=== PATIENT | female | born 1980 | race American Indian/Alaskan Native ===

== ENCOUNTER 2019-03-27 19:21 | Emergency (ER) | payer SELFPAY ==
[2019-03-27] MEDS ORDERED: IBUPROFEN 600 MG TAB PO ONE ×2 (22:03→22:05)
--- NOTE | 2019-03-27 22:03 | Event Note ---
ED Screening Note ED Screening Note: abscess to the labia that 2 days states she does shave with a razor no drainage no fever pmhx HTN no allergies to meds LNMP 03/21/19 This initial assessment/diagnostic orders/clinical plan/treatment(s) is/are subject to change based on patients health status, clinical progression and re- assessment by fellow clinical providers in the ED. Further treatment and workup at subsequent clinical providers discretion. Patient/guardian urged not to elope from the ED as their condition may be serious if not clinically assessed and managed. Initial orders include: ACC eval ibuprofen
[2019-03-28] MEDS ORDERED: ACETAMINOPHEN 325 MG TAB PO ONE (01:11)
[2019-03-28] MEDS ORDERED: SULFAMETHOXAZOLE/TRIMETHOPRIM 800/160MG DS TAB PO ONE (03:55)
[2019-03-28] MEDS ORDERED: LIDOCAINE-MPF (1%) 10 MG/1 ML VIAL 5 ML INFILTRATI ONE (03:55)
[2019-03-28] MEDS ORDERED: CLINDAMYCIN 300 MG CAP PO ONE (03:55)
[2019-03-28] MEDS ORDERED: ONDANSETRON 4 MG ODT TAB PO ONE (03:55)
--- NOTE | 2019-03-28 06:37 | Emergency Department Report ---
ED General Adult HPI - General Chief complaint: Urogenital-Female Stated complaint: BOIL ON LEFT SIDE OF VAGINA LIP Time Seen by Provider: 03/27/19 22:02 Source: patient Mode of arrival: Ambulatory Limitations: No Limitations - History of Present Illness Initial comments: Patient is a 38 year-old female with no past medical history who presents to the ED with complaint of acute onset persistent severe painful swollen erythematous fluctuant maculopapular rash on the left inguinal area for the last 2 days. Patient states that she recently shaved her pubic area and suspects that the rash may have resulted from this shaving. Patient denies fever, chills, nausea, vomiting, dizziness, numbness and tingling or weakness of left leg, chest pain or shortness of breath and abdominal pain. MD Complaint: left inguinal painful swollen rash -: Sudden, days(s) (2) Location: genitals (left inguinal area) Radiation: non-radiation Severity scale (0 -10): 10 Quality: aching, sharp Consistency: constant Improves with: none Worsens with: movement Associated Symptoms: denies other symptoms, rash (swollen, painful erythematous maculopapular fluctuant rash on left inguinal area). denies: confusion, chest pain, cough, diaphoresis, fever/chills, headaches, loss of appetite, malaise, nausea/vomiting, shortness of breath, syncope, other Treatments Prior to Arrival: none - Related Data Previous Rx's Medication Instructions Recorded Last Taken Type Acetaminophen/Codeine [Tylenol 1 tab PO Q6H PRN #12 tab 03/28/19 Unknown Rx /Codeine # 3 tab] Clindamycin [Clindamycin CAP] 300 mg PO Q8HR #60 capsule 03/28/19 Unknown Rx Fluconazole [Diflucan TAB] 150 mg PO ONCE #1 tablet 03/28/19 Unknown Rx Ibuprofen [Motrin] 800 mg PO Q8HR PRN #24 tablet 03/28/19 Unknown Rx Ondansetron [Zofran Odt] 4 mg PO Q6HR PRN #15 tab.rapdis 03/28/19 Unknown Rx Sulfamethoxazole/Trimethoprim 1 each PO Q12H #20 tablet 03/28/19 Unknown Rx [Bactrim DS TAB] Allergies Allergy/AdvReac Type Severity Reaction Status Date / Time No Known Allergies Allergy Verified 03/27/19 19:27 ED Review of Systems ROS: Stated complaint: BOIL ON LEFT SIDE OF VAGINA LIP Other details as noted in HPI Constitutional: denies: chills, fever Eyes: denies: eye pain, eye discharge, vision change ENT: denies: ear pain, throat pain Respiratory: denies: cough, shortness of breath, wheezing Cardiovascular: denies: chest pain, palpitations Endocrine: no symptoms reported Gastrointestinal: denies: abdominal pain, nausea, diarrhea Genitourinary: denies: urgency, dysuria, discharge Musculoskeletal: denies: back pain, joint swelling, arthralgia Skin: rash, change in color, other (swollen, erythematous, painful maculopapular fluctuant rash on the left inguinal area). denies: lesions Neurological: denies: headache, weakness, paresthesias Psychiatric: denies: anxiety, depression Hematological/Lymphatic: denies: easy bleeding, easy bruising ED Past Medical Hx - Past Medical History Previous Medical History?: Yes Hx Hypertension: Yes - Surgical History Past Surgical History?: No - Social History Smoking Status: Never Smoker Substance Use Type: None - Medications Home Medications: Home Medications Medication Instructions Recorded Confirmed Last Taken Type Acetaminophen/Codeine [Tylenol 1 tab PO Q6H PRN #12 tab 03/28/19 Unknown Rx /Codeine # 3 tab] Clindamycin [Clindamycin CAP] 300 mg PO Q8HR #60 capsule 03/28/19 Unknown Rx Fluconazole [Diflucan TAB] 150 mg PO ONCE #1 tablet 03/28/19 Unknown Rx Ibuprofen [Motrin] 800 mg PO Q8HR PRN #24 tablet 03/28/19 Unknown Rx Ondansetron [Zofran Odt] 4 mg PO Q6HR PRN #15 tab.rapdis 03/28/19 Unknown Rx Sulfamethoxazole/Trimethoprim 1 each PO Q12H #20 tablet 03/28/19 Unknown Rx [Bactrim DS TAB] ED Physical Exam - General Limitations: No Limitations General appearance: alert, in no apparent distress - Head Head exam: Present: atraumatic, normocephalic, normal inspection - Eye Eye exam: Present: normal appearance, PERRL, EOMI Pupils: Present: normal accommodation - ENT ENT exam: Present: normal exam, normal orophraynx, mucous membranes moist, TM's normal bilaterally, normal external ear exam - Neck Neck exam: Present: normal inspection, full ROM. Absent: tenderness - Respiratory Respiratory exam: Present: normal lung sounds bilaterally. Absent: respiratory distress, wheezes, rales, stridor, chest wall tenderness, decreased breath sounds - Cardiovascular Cardiovascular Exam: Present: normal rhythm, tachycardia, normal heart sounds. Absent: systolic murmur, diastolic murmur, rubs, gallop - GI/Abdominal GI/Abdominal exam: Present: soft, normal bowel sounds. Absent: tenderness, guarding, hyperactive bowel sounds, hypoactive bowel sounds - Extremities Exam Extremities exam: Present: normal inspection, full ROM, normal capillary refill. Absent: pedal edema - Back Exam Back exam: Present: normal inspection, full ROM. Absent: tenderness, muscle spasm, paraspinal tenderness - Neurological Exam Neurological exam: Present: alert, oriented X3, CN II-XII intact, normal gait, reflexes normal - Psychiatric Psychiatric exam: Present: normal affect, normal mood - Skin Skin exam: Present: warm, dry, intact, normal color, rash (swollen, erythematous, maculopapular fluctuant severely tender rash in the left inguinal area), erythema ED Course Vital Signs 03/27/19 03/27/19 03/27/19 20:02 22:02 23:15 Temperature 98.9 F 98.9 F Pulse Rate 103 H 103 H Respiratory 18 18 18 Rate Blood Pressure 140/96 140/96 O2 Sat by Pulse 100 100 Oximetry 03/28/19 01:46 Temperature 97.9 F Pulse Rate 97 H Respiratory 18 Rate Blood Pressure 146/96 O2 Sat by Pulse 98 Oximetry - I & D Left Lateral Groin Type of Procedure: Simple Site: Left inguinal area Blade Size: 11 I & D Procedure: betadine prep, sterile drapes applied, sterile dressing applied Progress: The left inguinal area rash was cleaned thoroughly and local anesthetic applied lidocaine 1%. The wound was then drained appropriately per protocol and the patient tolerated the procedure well. The wound was debrided until collections broken and iodoform gauze used to pack the wound. The wound was then dressed appropriately with 4 x 4 gauzes and Tegaderm. Patient tolerated the procedure well and was discharged home on pain medications and oral antibiotics and advised to follow-up with her primary care physician in 5-7 days for reevaluation or return to the ED immediately if symptoms get worse. Patient was otherwise advised to return to the ED in 2 days for wound recheck and packing removal. ED Medical Decision Making - Medical Decision Making This is a 38-year-old female who presented to the ED with painful swollen erythematous maculopapular rash on her left inguinal area. In the ED, patient is alert and oriented 3 and is not in distress. But tachycardic and afebrile in triage. Patient was treated for pain, also given oral antibiotics in the ED. The left inguinal rash was cleaned and drained per protocol. Iodoform gauze was used as a packing material and the wound dressed appropriately. Patient was discharged home on medications including antibiotics and pain medicines and was advised to follow-up with her primary care physician in 5-7 days for reevaluation or return to the ED immediately if symptoms get worse. Patient was otherwise advised to return to the ED in 2 days for wound recheck and packing removal. - Differential Diagnosis left inguinal cellulitis; Acute folliculitis; Abscess Critical care attestation.: If time is entered above; I have spent that time in minutes in the direct care of this critically ill patient, excluding procedure time. ED Disposition Clinical Impression: Cutaneous abscess of groin, Cellulitis of left groin, Acute folliculitis Disposition: DC-01 TO HOME OR SELFCARE Is pt being admited?: No Does the pt Need Aspirin: No Condition: Stable Instructions: Folliculitis (ED), Cellulitis (ED), Abscess (ED) Additional Instructions: Take medications with food, drink plenty of fluids and follow-up with your primary care physician 5-7 days for reevaluation. Return to the ED immediately if symptoms get worse. Otherwise return to the ED in 2 days for wound recheck and packing removal. Prescriptions: Sulfamethoxazole/Trimethoprim [Bactrim DS TAB] 1 each PO Q12H #20 tablet Clindamycin [Clindamycin CAP] 300 mg PO Q8HR #60 capsule Fluconazole [Diflucan TAB] 150 mg PO ONCE #1 tablet Ibuprofen [Motrin] 800 mg PO Q8HR PRN #24 tablet PRN Reason: Pain , Severe (7-10) Acetaminophen/Codeine [Tylenol /Codeine # 3 tab] 1 tab PO Q6H PRN #12 tab PRN Reason: Pain , Severe (7-10) Ondansetron [Zofran Odt] 4 mg PO Q6HR PRN #15 tab.rapdis PRN Reason: Nausea Referrals: [facility] [Outside] - 3-5 Days Forms: Work/School Release Form(ED) Time of Disposition: 06:42 Print Language: LAO
[2019-03-28 07:05] VITALS: BP 122/65
== END 2019-03-28 07:06 | disposition home or self-care (01) ==
LOC: ED 19:21
DX: L02.214 Cutaneous abscess of groin (principal); L03.314 Cellulitis of groin; L73.8 Other specified follicular disorders; I10 Essential (primary) hypertension; Z79.899 Other long term (current) drug therapy
CPT/HCPCS: Q0162

== ENCOUNTER 2019-03-31 06:10 | Emergency (ER) | payer SELFPAY ==
[2019-03-31 06:17] VITALS: BP 144/100
--- NOTE | 2019-03-31 08:10 | Emergency Department Report ---
- General Chief Complaint: Skin/Abscess/Foreign Body Stated Complaint: FOLLOW UP VISIT Time Seen by Provider: 03/31/19 07:28 Source: patient Mode of arrival: Ambulatory Limitations: No Limitations - History of Present Illness -: days(s) (2) Location: genitals 1 - Incised wound region right here no discharge. Mild induration induration. Some tenderness with palpation. No cellulitis. Packing was removed in its entirety Place: home Patient Tetanus UTD: Yes - Related Data Previous Rx's Medication Instructions Recorded Last Taken Type Acetaminophen/Codeine [Tylenol 1 tab PO Q6H PRN #12 tab 03/28/19 Unknown Rx /Codeine # 3 tab] Clindamycin [Clindamycin CAP] 300 mg PO Q8HR #60 capsule 03/28/19 Unknown Rx Fluconazole [Diflucan TAB] 150 mg PO ONCE #1 tablet 03/28/19 Unknown Rx Ibuprofen [Motrin] 800 mg PO Q8HR PRN #24 tablet 03/28/19 Unknown Rx Ondansetron [Zofran Odt] 4 mg PO Q6HR PRN #15 tab.rapdis 03/28/19 Unknown Rx Sulfamethoxazole/Trimethoprim 1 each PO Q12H #20 tablet 03/28/19 Unknown Rx [Bactrim DS TAB] Chlorhexidine Gluconate [Hibiclens] 10 ml TP BID #240 liquid 03/31/19 Unknown Rx Allergies Allergy/AdvReac Type Severity Reaction Status Date / Time No Known Allergies Allergy Verified 03/27/19 19:27 ED Review of Systems ROS: Stated complaint: FOLLOW UP VISIT Other details as noted in HPI Comment: All other systems reviewed and negative ED Past Medical Hx - Past Medical History Previous Medical History?: Yes Hx Hypertension: Yes - Surgical History Past Surgical History?: No - Social History Smoking Status: Current Every Day Smoker Substance Use Type: None - Medications Home Medications: Home Medications Medication Instructions Recorded Confirmed Last Taken Type Acetaminophen/Codeine [Tylenol 1 tab PO Q6H PRN #12 tab 03/28/19 Unknown Rx /Codeine # 3 tab] Clindamycin [Clindamycin CAP] 300 mg PO Q8HR #60 capsule 03/28/19 Unknown Rx Fluconazole [Diflucan TAB] 150 mg PO ONCE #1 tablet 03/28/19 Unknown Rx Ibuprofen [Motrin] 800 mg PO Q8HR PRN #24 tablet 03/28/19 Unknown Rx Ondansetron [Zofran Odt] 4 mg PO Q6HR PRN #15 tab.rapdis 03/28/19 Unknown Rx Sulfamethoxazole/Trimethoprim 1 each PO Q12H #20 tablet 03/28/19 Unknown Rx [Bactrim DS TAB] Chlorhexidine Gluconate [Hibiclens] 10 ml TP BID #240 liquid 03/31/19 Unknown Rx ED Physical Exam - General Limitations: No Limitations General appearance: alert, in no apparent distress - Head Head exam: Present: atraumatic, normocephalic - Eye Eye exam: Present: normal appearance, PERRL, EOMI Pupils: Present: normal accommodation - ENT ENT exam: Present: normal exam, normal orophraynx, mucous membranes moist - Neck Neck exam: Present: normal inspection - Respiratory Respiratory exam: Present: normal lung sounds bilaterally. Absent: respiratory distress - Cardiovascular Cardiovascular Exam: Present: regular rate, normal rhythm. Absent: systolic murmur, diastolic murmur, rubs, gallop - GI/Abdominal GI/Abdominal exam: Present: soft, normal bowel sounds - Extremities Exam Extremities exam: Present: normal inspection - Back Exam Back exam: Present: normal inspection - Neurological Exam Neurological exam: Present: alert, oriented X3 - Psychiatric Psychiatric exam: Present: normal affect, normal mood - Skin Skin exam: Present: warm, dry, intact, normal color. Absent: rash ED Course Vital Signs 03/31/19 06:14 Temperature 98.5 F Pulse Rate 87 Respiratory 14 Rate Blood Pressure 144/100 O2 Sat by Pulse 99 Oximetry Critical care attestation.: If time is entered above; I have spent that time in minutes in the direct care of this critically ill patient, excluding procedure time. ED Disposition Clinical Impression: Wound check, abscess Disposition: DC-01 TO HOME OR SELFCARE Is pt being admited?: No Does the pt Need Aspirin: No Condition: Stable Instructions: Abscess Incision and Drainage (ED), Acute Wound Care (ED), Abscess (ED) Prescriptions: Chlorhexidine Gluconate [Hibiclens] 10 ml TP BID #240 liquid Referrals: [facility] [Provider Group] - 3-5 Days PRIMARY CARE, [Primary Care Provider] - 3-5 Days
== END 2019-03-31 08:05 | disposition home or self-care (01) ==
LOC: ED 06:10
DX: I10 Essential (primary) hypertension (principal); F17.200 Nicotine dependence, unspecified, uncomplicated; Z48.00 Encounter for change or removal of nonsurgical wound dressing; Z79.1 Long term (current) use of non-steroidal anti-inflammatories (NSAID); Z79.899 Other long term (current) drug therapy

== ENCOUNTER 2020-01-07 07:04 | Emergency (ER) | payer SELFPAY ==
--- NOTE | 2020-01-07 08:35 | Emergency Department Report ---
<TD BLOCK M - Last Filed: 01/08/20 12:35> ED General Adult HPI - General Chief complaint: Psych Stated complaint: SUICIDAL Time Seen by Provider: 01/07/20 08:27 - Related Data Home Medications Medication Instructions Recorded Confirmed Last Taken [place] 300 mg PO Q8H 01/07/20 01/07/20 Unknown risperiDONE [RisperDAL] 0.5 mg PO DAILY 01/07/20 01/07/20 Unknown Previous Rx's Medication Instructions Recorded Last Taken Type Acetaminophen/Codeine [Tylenol 1 tab PO Q6H PRN #12 tab 03/28/19 Unknown Rx /Codeine # 3 tab] Clindamycin [Clindamycin CAP] 300 mg PO Q8HR #60 capsule 03/28/19 Unknown Rx Fluconazole (Nf) [Diflucan TAB] 150 mg PO ONCE #1 tablet 03/28/19 Unknown Rx Ibuprofen [Motrin] 800 mg PO Q8HR PRN #24 tablet 03/28/19 Unknown Rx Ondansetron [Zofran Odt] 4 mg PO Q6HR PRN #15 tab.rapdis 03/28/19 Unknown Rx Sulfamethoxazole/Trimethoprim 1 each PO Q12H #20 tablet 03/28/19 Unknown Rx [Bactrim DS TAB] Chlorhexidine Gluconate [Hibiclens] 10 ml TP BID #240 liquid 03/31/19 Unknown Rx [place] 300 mg PO Q8H #90 tablet 01/08/20 Unknown Rx cefUROXime [Ceftin] 250 mg PO Q12H #14 tablet 01/08/20 Unknown Rx risperiDONE [RisperDAL] 0.25 mg PO BID #60 tab 01/08/20 Unknown Rx Allergies Allergy/AdvReac Type Severity Reaction Status Date / Time No Known Allergies Allergy Verified 03/27/19 19:27 ED Past Medical Hx - Medications Home Medications: Home Medications Medication Instructions Recorded Confirmed Last Taken Type Acetaminophen/Codeine [Tylenol 1 tab PO Q6H PRN #12 tab 03/28/19 01/07/20 Unknown Rx /Codeine # 3 tab] Clindamycin [Clindamycin CAP] 300 mg PO Q8HR #60 capsule 03/28/19 01/07/20 Unknown Rx Fluconazole (Nf) [Diflucan TAB] 150 mg PO ONCE #1 tablet 03/28/19 01/07/20 Unknown Rx Ibuprofen [Motrin] 800 mg PO Q8HR PRN #24 tablet 03/28/19 01/07/20 Unknown Rx Ondansetron [Zofran Odt] 4 mg PO Q6HR PRN #15 tab.rapdis 03/28/19 01/07/20 Unknown Rx Sulfamethoxazole/Trimethoprim 1 each PO Q12H #20 tablet 03/28/19 01/07/20 Unknown Rx [Bactrim DS TAB] Chlorhexidine Gluconate [Hibiclens] 10 ml TP BID #240 liquid 03/31/19 01/07/20 Unknown Rx [place] 300 mg PO Q8H 01/07/20 01/07/20 Unknown History risperiDONE [RisperDAL] 0.5 mg PO DAILY 01/07/20 01/07/20 Unknown History [place] 300 mg PO Q8H #90 tablet 01/08/20 Unknown Rx cefUROXime [Ceftin] 250 mg PO Q12H #14 tablet 01/08/20 Unknown Rx risperiDONE [RisperDAL] 0.25 mg PO BID #60 tab 01/08/20 Unknown Rx ED Medical Decision Making - Lab Data Result diagrams: 01/07/20 08:11 01/07/20 08:11 - Medical Decision Making Urinalysis possibly consistent with UTI. I will send culture and prescribe Ceftin. ED Disposition Clinical Impression: Methamphetamine abuse, Drug-induced psychotic disorder, Medical clearance for psychiatric admission Disposition: [id number]/TX-[id number] PSY HOSP/PSY UNIT Is pt being admited?: No Does the pt Need Aspirin: No Condition: Good Instructions: Amphetamines Use Disorder, Urinary Tract Infection, Adult Prescriptions: cefUROXime [Ceftin] 250 mg PO Q12H #14 tablet [place] 300 mg PO Q8H #90 tablet risperiDONE [RisperDAL] 0.25 mg PO BID #60 tab Referrals: PRIMARY CARE,MD [Primary Care Provider] - 3-5 Days Time of Disposition: 12:36 <GRETCHEN ALBERTO - Last Filed: 01/08/20 17:06> ED General Adult HPI - General PUI?: Yes Source: patient, EMS ( EMS documentation not available at time of chart dictation ), RN notes reviewed, old records reviewed Mode of arrival: Ambulatory Limitations: No Limitations - History of Present Illness Initial comments: The patient was evaluated in the emergency department for symptoms described in the history of present illness. He/she was evaluated in the context of the global COVID-19 pandemic, which necessitated consideration that the patient might be at risk for infection with the virus that causes COVID-19. Institutional protocols and algorithms that pertain to the evaluation of patients at risk for COVID-19 are in a state of rapid change based on in formation released by regulatory bodies including the CDC and federal and state organizations. These policies and algorithms were followed during the patient's care in the emergency department. Please note that these policies, procedures and recommendations changed on a rapid basis. During the entire history and physical examination, I had on complete personal protective equipment. This patient is a 39-year-old female, with a history of psychiatric disease, who presents to the ER via EMS, for psychiatric reasons. Apparently, the patient reports suicidality, wants to set herself on fire, and reports a plan to run into traffic. The patient denies physical pain at this time. She denies headache, neck pain, chest pain, abdominal pain, shortness of breath, dysuria, irritative/obstructive urinary symptoms. To me, she denies fever, cough, loss of taste, loss of smell. She is intermittently compliant with her psychiatric medications. She believes her trigger for this is a recent methamphetamine binge. She typically snorts methamphetamines. She denies other coingestions. She told nursing staff that she has COVID-19. To me, she states that she has been fairly isolated, and does not believe that she is COVID-19. Her sensation of suicidality is constant, painless, does not radiate anywhere, and to the best of her recollection, does not have exacerbating or relieving factors, with the exception of methamphetamine consumption. -: Gradual, days(s) Quality: other Consistency: other Improves with: other Worsens with: other Associated Symptoms: other Treatments Prior to Arrival: other ED Review of Systems ROS: Stated complaint: SUICIDAL Other details as noted in HPI Constitutional: denies: fever Eyes: denies: vision change Respiratory: denies: cough Cardiovascular: denies: chest pain Gastrointestinal: denies: abdominal pain, nausea, vomiting, diarrhea, hematemesis, melena, hematochezia Genitourinary: denies: dysuria Musculoskeletal: denies: myalgia Neurological: denies: weakness Psychiatric: anxiety, auditory hallucinations, visual hallucinations, homicidal thoughts, suicidal thoughts ED Past Medical Hx - Past Medical History Previous Medical History?: Yes Hx Hypertension: Yes Hx Psychiatric Treatment: Yes (Bipolar, Psychosis, Drug use with Meth) Additional medical history: chest tightness, Non compliant with psych meds - Surgical History Past Surgical History?: Yes Additional Surgical History: tubaligation - Social History Smoking Status: Current Every Day Smoker Substance Use Type: Alcohol, Marijuana, Methamphetamines ED Physical Exam - General Limitations: Other (Patient appears to be psychotic) General appearance: alert, anxious - Head Head exam: Present: atraumatic, normocephalic - Eye Eye exam: Present: normal appearance, EOMI. Absent: nystagmus - ENT ENT exam: Present: normal exam, normal orophraynx, mucous membranes moist, no rmal external ear exam - Neck Neck exam: Present: normal inspection, full ROM. Absent: tenderness, meningismus - Respiratory Respiratory exam: Present: normal lung sounds bilaterally. Absent: respiratory distress, wheezes, rales, rhonchi, stridor, decreased breath sounds - Cardiovascular Cardiovascular Exam: Present: normal rhythm, tachycardia. Absent: systolic murmur, diastolic murmur, rubs, gallop - GI/Abdominal GI/Abdominal exam: Present: soft. Absent: distended, tenderness, guarding, rebound, rigid, pulsatile mass - Extremities Exam Extremities exam: Present: normal inspection, full ROM, other (2+ pulses noted in the bilateral upper and lower extremities. There is no palpable cord. neg ative Homans sign. Muscular compartments are soft. The pelvis is stable.). Absent: pedal edema, calf tenderness - Back Exam Back exam: Present: normal inspection, full ROM. Absent: tenderness, CVA tenderness (R), CVA tenderness (L), paraspinal tenderness, vertebral tenderness - Neurological Exam Neurological exam: Present: alert, oriented X3, normal gait, other (No facial droop. Tongue midline. Extraocular movements intact bilaterally. Facial sensation intact to light touch in V1, V2, V3 distribution bilaterally. 5 and a 5 strength in 4 extremities. Sensation intact to light touch in 4 extremities.). Absent: motor sensory deficit - Psychiatric Psychiatric exam: Present: anxious, suicidal ideation - Skin Skin exam: Present: warm, dry, intact, normal color. Absent: rash ED Course Vital Signs 01/07/20 01/07/20 01/07/20 07:53 10:12 11:20 Temperature 98.3 F 98.5 F 98 F Pulse Rate 121 H 113 H 108 H Respiratory 18 19 19 Rate Blood Pressure 162/113 Blood Pressure 149/108 151/99 [Left] O2 Sat by Pulse 100 100 100 Oximetry 01/07/20 01/07/20 01/07/20 20:00 21:00 23:04 Temperature 98.7 F Pulse Rate 108 H 108 H Respiratory 20 20 Rate Blood Pressure 160/103 Blood Pressure 160/103 [Left] O2 Sat by Pulse 96 96 Oximetry 01/08/20 01/08/20 04:01 10:13 Temperature 98.4 F 98.4 F Pulse Rate 90 109 H Respiratory 18 19 Rate Blood Pressure 108/78 Blood Pressure 96/69 [Left] O2 Sat by Pulse 95 98 Oximetry - Reevaluation(s) Reevaluation #1: 01/07/20 15:43 Covid swab is negative. No documented hypoxia. Do not clinically suspect Covid at this time. Isolation precautions discontinued. Patient remains medically suitable for psychiatric placement, consultation and evaluation. ED Medical Decision Making - Lab Data Result diagrams: 01/07/20 08:11 01/07/20 08:11 Vital Signs 01/07/20 01/07/20 01/07/20 07:53 10:12 11:20 Temperature 98.3 F 98.5 F 98 F Pulse Rate 121 H 113 H 108 H Respiratory 18 19 19 Rate Blood Pressure 162/113 Blood Pressure 149/108 151/99 [Left] O2 Sat by Pulse 100 100 100 Oximetry Lab Results 01/07/20 01/07/20 01/07/20 Range/Units 08:11 08:11 08:11 WBC (4.5-11.0) K/mm3 RBC (3.65-5.03) M/mm3 Hgb (10.1-14.3) gm/dl Hct (30.3-42.9) % MCV (79-97) fl MCH (28-32) pg MCHC (30-34) % RDW (13.2-15.2) % Plt Count (140-440) K/mm3 Lymph % (Auto) (13.4-35.0) % [place] % (Auto) (0.0-7.3) % Eos % (Auto) (0.0-4.3) % Baso % (Auto) (0.0-1.8) % Lymph # (Auto) (1.2-5.4) K/mm3 [place] # (Auto) (0.0-0.8) K/mm3 Eos # (Auto) (0.0-0.4) K/mm3 Baso # (Auto) (0.0-0.1) K/mm3 Seg Neutrophils % (40.0-70.0) % Seg Neutrophils # (1.8-7.7) K/mm3 Sodium 137 (137-145) mmol/L Potassium 4.3 (3.6-5.0) mmol/L Chloride 99.2 (98-107) mmol/L Carbon Dioxide 27 (22-30) mmol/L Anion Gap 15 mmol/L BUN 12 (7-17) mg/dL Creatinine 0.9 (0.6-1.2) mg/dL Estimated GFR > 60 ml/min BUN/Creatinine Ratio 13 % Glucose 105 H (65-100) mg/dL Calcium 10.0 (8.4-10.2) mg/dL Magnesium (1.7-2.3) mg/dL Total Creatine Kinase (30-135) units/L HCG, Qual (Negative) Urine Color (Yellow) Urine Turbidity (Clear) Urine pH (5.0-7.0) Ur Specific [place] (1.003-1.030) Urine Protein (Negative) mg/dL Urine Glucose (UA) (Negative) mg/dL Urine Ketones (Negative) mg/dL Urine Blood (Negative) Urine Nitrite (Negative) Urine Bilirubin (Negative) Urine Urobilinogen (<2.0) mg/dL Ur Leukocyte Esterase (Negative) Urine WBC (Auto) (0.0-6.0) /HPF Urine RBC (Auto) (0.0-6.0) /HPF U Epithel Cells (Auto) (0-13.0) /HPF Urine Bacteria (Auto) (Negative) /HPF Urine Mucus /HPF Salicylates < 0.3 L (2.8-20.0) mg/dL Urine Opiates Screen Urine Methadone Screen Acetaminophen 5.0 L (10.0-30.0) ug/mL Ur Barbiturates Screen Ur Phencyclidine Scrn Ur Amphetamines Screen U Benzodiazepines Scrn [place] (0.0-1.2) mmol/L Urine Cocaine Screen U Marijuana (THC) Screen Drugs of Abuse Note Plasma/Serum Alcohol (0-0.07) % 01/07/20 01/07/20 01/07/20 Range/Units 08:11 08:11 08:11 WBC 14.3 H (4.5-11.0) K/mm3 RBC 4.40 (3.65-5.03) M/mm3 Hgb 12.5 (10.1-14.3) gm/dl Hct 38.6 (30.3-42.9) % MCV 88 (79-97) fl MCH 28 (28-32) pg MCHC 32 (30-34) % RDW 16.0 H (13.2-15.2) % Plt Count 553 H (140-440) K/mm3 Lymph % (Auto) 12.0 L (13.4-35.0) % [place] % (Auto) 5.3 (0.0-7.3) % Eos % (Auto) 0.2 (0.0-4.3) % Baso % (Auto) 0.5 (0.0-1.8) % Lymph # (Auto) 1.7 (1.2-5.4) K/mm3 [place] # (Auto) 0.8 (0.0-0.8) K/mm3 Eos # (Auto) 0.0 (0.0-0.4) K/mm3 Baso # (Auto) 0.1 (0.0-0.1) K/mm3 Seg Neutrophils % 82.0 H (40.0-70.0) % Seg Neutrophils # 11.7 H (1.8-7.7) K/mm3 Sodium (137-145) mmol/L Potassium (3.6-5.0) mmol/L Chloride (98-107) mmol/L Carbon Dioxide (22-30) mmol/L Anion Gap mmol/L BUN (7-17) mg/dL Creatinine (0.6-1.2) mg/dL Estimated GFR ml/min BUN/Creatinine Ratio % Glucose (65-100) mg/dL Calcium (8.4-10.2) mg/dL Magnesium (1.7-2.3) mg/dL Total Creatine Kinase (30-135) units/L HCG, Qual Negative (Negative) Urine Color (Yellow) Urine Turbidity (Clear) Urine pH (5.0-7.0) Ur Specific [place] (1.003-1.030) Urine Protein (Negative) mg/dL Urine Glucose (UA) (Negative) mg/dL Urine Ketones (Negative) mg/dL Urine Blood (Negative) Urine Nitrite (Negative) Urine Bilirubin (Negative) Urine Urobilinogen (<2.0) mg/dL Ur Leukocyte Esterase (Negative) Urine WBC (Auto) (0.0-6.0) /HPF Urine RBC (Auto) (0.0-6.0) /HPF U Epithel Cells (Auto) (0-13.0) /HPF Urine Bacteria (Auto) (Negative) /HPF Urine Mucus /HPF Salicylates (2.8-20.0) mg/dL Urine Opiates Screen Urine Methadone Screen Acetaminophen (10.0-30.0) ug/mL Ur Barbiturates Screen Ur Phencyclidine Scrn Ur Amphetamines Screen U Benzodiazepines Scrn [place] (0.0-1.2) mmol/L Urine Cocaine Screen U Marijuana (THC) Screen Drugs of Abuse Note Plasma/Serum Alcohol < 0.01 (0-0.07) % 01/07/20 01/07/20 01/07/20 Range/Units 08:11 08:11 Unknown WBC (4.5-11.0) K/mm3 RBC (3.65-5.03) M/mm3 Hgb (10.1-14.3) gm/dl Hct (30.3-42.9) % MCV (79-97) fl MCH (28-32) pg MCHC (30-34) % RDW (13.2-15.2) % Plt Count (140-440) K/mm3 Lymph % (Auto) (13.4-35.0) % [place] % (Auto) (0.0-7.3) % Eos % (Auto) (0.0-4.3) % Baso % (Auto) (0.0-1.8) % Lymph # (Auto) (1.2-5.4) K/mm3 [place] # (Auto) (0.0-0.8) K/mm3 Eos # (Auto) (0.0-0.4) K/mm3 Baso # (Auto) (0.0-0.1) K/mm3 Seg Neutrophils % (40.0-70.0) % Seg Neutrophils # (1.8-7.7) K/mm3 Sodium (137-145) mmol/L Potassium (3.6-5.0) mmol/L Chloride (98-107) mmol/L Carbon Dioxide (22-30) mmol/L Anion Gap mmol/L BUN (7-17) mg/dL Creatinine (0.6-1.2) mg/dL Estimated GFR ml/min BUN/Creatinine Ratio % Glucose (65-100) mg/dL Calcium (8.4-10.2) mg/dL Magnesium 2.50 H (1.7-2.3) mg/dL Total Creatine Kinase 275 H (30-135) units/L HCG, Qual (Negative) Urine Color Yellow (Yellow) Urine Turbidity Cloudy (Clear) Urine pH 5.0 (5.0-7.0) Ur Specific [place] 1.025 (1.003-1.030) Urine Protein 30 mg/dl (Negative) mg/dL Urine Glucose (UA) Neg (Negative) mg/dL Urine Ketones Neg (Negative) mg/dL Urine Blood Sm (Negative) Urine Nitrite Neg (Negative) Urine Bilirubin Neg (Negative) Urine Urobilinogen < 2.0 (<2.0) mg/dL Ur Leukocyte Esterase Lg (Negative) Urine WBC (Auto) 27.0 H (0.0-6.0) /HPF Urine RBC (Auto) 59.0 (0.0-6.0) /HPF U Epithel Cells (Auto) 53.0 H (0-13.0) /HPF Urine Bacteria (Auto) 1+ (Negative) /HPF Urine Mucus 1+ /HPF Salicylates (2.8-20.0) mg/dL Urine Opiates Screen Urine Methadone Screen Acetaminophen (10.0-30.0) ug/mL Ur Barbiturates Screen Ur Phencyclidine Scrn Ur Amphetamines Screen U Benzodiazepines Scrn [place] 0.3 (0.0-1.2) mmol/L Urine Cocaine Screen U Marijuana (THC) Screen Drugs of Abuse Note Plasma/Serum Alcohol (0-0.07) % 01/07/20 Range/Units Unknown WBC (4.5-11.0) K/mm3 RBC (3.65-5.03) M/mm3 Hgb (10.1-14.3) gm/dl Hct (30.3-42.9) % MCV (79-97) fl MCH (28-32) pg MCHC (30-34) % RDW (13.2-15.2) % Plt Count (140-440) K/mm3 Lymph % (Auto) (13.4-35.0) % [place] % (Auto) (0.0-7.3) % Eos % (Auto) (0.0-4.3) % Baso % (Auto) (0.0-1.8) % Lymph # (Auto) (1.2-5.4) K/mm3 [place] # (Auto) (0.0-0.8) K/mm3 Eos # (Auto) (0.0-0.4) K/mm3 Baso # (Auto) (0.0-0.1) K/mm3 Seg Neutrophils % (40.0-70.0) % Seg Neutrophils # (1.8-7.7) K/mm3 Sodium (137-145) mmol/L Potassium (3.6-5.0) mmol/L Chloride (98-107) mmol/L Carbon Dioxide (22-30) mmol/L Anion Gap mmol/L BUN (7-17) mg/dL Creatinine (0.6-1.2) mg/dL Estimated GFR ml/min BUN/Creatinine Ratio % Glucose (65-100) mg/dL Calcium (8.4-10.2) mg/dL Magnesium (1.7-2.3) mg/dL Total Creatine Kinase (30-135) units/L HCG, Qual (Negative) Urine Color (Yellow) Urine Turbidity (Clear) Urine pH (5.0-7.0) Ur Specific [place] (1.003-1.030) Urine Protein (Negative) mg/dL Urine Glucose (UA) (Negative) mg/dL Urine Ketones (Negative) mg/dL Urine Blood (Negative) Urine Nitrite (Negative) Urine Bilirubin (Negative) Urine Urobilinogen (<2.0) mg/dL Ur Leukocyte Esterase (Negative) Urine WBC (Auto) (0.0-6.0) /HPF Urine RBC (Auto) (0.0-6.0) /HPF U Epithel Cells (Auto) (0-13.0) /HPF Urine Bacteria (Auto) (Negative) /HPF Urine Mucus /HPF Salicylates (2.8-20.0) mg/dL Urine Opiates Screen Negative Urine Methadone Screen Negative Acetaminophen (10.0-30.0) ug/mL Ur Barbiturates Screen Negative Ur Phencyclidine Scrn Negative Ur Amphetamines Screen Positive U Benzodiazepines Scrn Negative [place] (0.0-1.2) mmol/L Urine Cocaine Screen Negative U Marijuana (THC) Screen Positive Drugs of Abuse Note Disclamer Plasma/Serum Alcohol (0-0.07) % - Medical Decision Making Differential diagnosis, including but not limited to: Drug-induced psychosis, medical clearance for psychiatric placement Assessment and plan: 39-year-old female who appears to be psychotic, with plan to kill herself, in the context of recent methamphetamine binge. Elevated blood pressure, tachycardia, and leukocytosis are all likely secondary to the aforementioned. Screening laboratory studies otherwise unremarkable. 1013 executed for the aforementioned. Psychiatric consultation is obtained and appreciated. Urinalysis is reviewed and appreciated, contaminated, patient does not endorse irritative or obstructive urinary symptoms. Medication reconciliation is reviewed and appreciated. Think Covid is unlikely, however, Covid screen is ordered. X-ray of the chest is negative. At this point in time, patient does not appear to have an immediate medical contraindication to psychiatric admission, evaluation, consultation and placement. Even if patient did have COVID-19, she would not be admitted to the hospital. She is pending psychiatric placement at this time. Critical care attestation.: If time is entered above; I have spent that time in minutes in the direct care of this critically ill patient, excluding procedure time. ED Disposition Is pt being admited?: No Does the pt Need Aspirin: No
[2020-01-07 08:56] LABS: BUN/Creatinine Ratio 13; Blood Urea Nitrogen 12 mg/dL (7-17); Hemolysis Index 1
[2020-01-07 09:00] LABS: Benzodiazepines Screen,Urine Negative; Cocaine Screen,Urine Negative; Methadone Screen,Urine Negative; Opiate Screen,Urine Negative
[2020-01-07 09:12] LABS: Basophils # (Auto) 0.1 K/mm3 (0.0-0.1); Basophils % (Auto) 0.5 % (0.0-1.8); Eosinophils % (Auto) 0.2 % (0.0-4.3); Hematocrit 38.6 % (30.3-42.9); Hemoglobin 12.5 gm/dl (10.1-14.3); Lymphocytes # (Auto) 1.7 K/mm3 (1.2-5.4); Mean Corpuscular HGB Conc 32 % (30-34); Mean Corpuscular Volume 88 fl (79-97); Monocytes # (Auto) 0.8 K/mm3 (0.0-0.8); Monocytes % (Auto) 5.3 % (0.0-7.3); Platelet Count 553 K/mm3 (140-440)
[2020-01-07 09:13] LABS: Amphetamine Screen,Urine Positive; Cannabinoid Screen,Urine Positive
[2020-01-07 09:20] LABS: Bacteria,Urine 1+ /HPF (Negative); Bilirubin,Urine NEG (Negative); Blood,Urine SM (Negative); Color,Urine Yellow (Yellow); Mucus,Urine 1+ /HPF; Urobilinogen,Urine < 2.0 mg/dL (<2.0)
[2020-01-07] MEDS ORDERED: LORazepam 2 MG/ML VIAL IM PRN (09:21)
[2020-01-07] MEDS ORDERED: HALOPERIDOL LACTATE 5 MG/1 ML INJ IM PRN (09:21)
[2020-01-07] MEDS ORDERED: LORazepam 1 MG TAB PO ONE (09:22)
--- NOTE | 2020-01-07 09:48 | XRay Report ---
CHEST 2 VIEWS INDICATION / CLINICAL INFORMATION: Covid 19. COMPARISON: None available. FINDINGS: SUPPORT DEVICES: None. HEART / MEDIASTINUM: No significant abnormality. LUNGS / PLEURA: No significant pulmonary or pleural abnormality. No pneumothorax. ADDITIONAL FINDINGS: No significant additional findings. IMPRESSION: 1. No acute abnormality of the chest. Signer Name: Colt Roberts MD Signed: 01/07/2020 9:43 AM Workstation Name: [id number]
[2020-01-07] MEDS ORDERED: ONDANSETRON 4 MG ODT TAB PO PRN (12:03)
[2020-01-07] MEDS ORDERED: METOPROLOL TARTRATE 50 MG TAB PO SCH (13:00)
[2020-01-07] MEDS ORDERED: CHLORHEXIDINE GLUCONATE TP SCH (22:00)
[2020-01-07] MEDS ORDERED: METOPROLOL TARTRATE 25 MG TAB ONE (22:58)
[2020-01-07] MEDS: METOPROLOL TARTRATE 25 MG TAB PO SCH (23:04)
[2020-01-07] MEDS ORDERED: LITHIUM CARBONATE 300 MG PO SCH (23:45)
[2020-01-07] MEDS ORDERED: LITHIUM CARBONATE 300 MG CAP PO SCH (23:45)
[2020-01-08] MEDS ORDERED: risperiDONE 0.25 MG TAB PO SCH (10:00)
[2020-01-08] MEDS ORDERED: NON-FORMULARY EACH (Risperidone [Risperdal] 0.5 MG) PO SCH (10:00)
[2020-01-08 10:15] VITALS: BP 96/69
--- NOTE | 2020-01-08 11:27 | Consultation ---
History of Present Illness - Reason for Consult Consult date: 01/08/20 Reason for consult: SI - History of Present Psychiatric Illness Geetha Ram is a 39y/o female patient who presented to the ER for suicidal thoughts. During my interview with the patient she is a/o x 3. She is calm, cooperative, and polite. She is lucid and conversational. The patient says "I was off my meds for some days and I smoked meth and marijuana." She says "at some point I smoked crack too but not in the last few weeks." She says she lives with her boyfriend, "but not sure if he's going to let me come back." The patient says "I just need to keep taking my meds but I want to be normal." She says "If I get released I wont have anywhere to go cause I think he's mad at me." I discussed with the patient her need for drug cessation and rehab. The patient also counseled on importance of complying with medical regimen. The patient become tearful, and states, "I know that I gotta stop the drugs. I'm hurting my family." She becomes tearful. She says, "I feel like this it it. I'm done with drugs because I'm tired of going to senior care, and I don't want to have to come to no hospital." She says she attempted suicide "about three times in the past." She says "I have problems with highs and lows. I go from zero to 100." She says "most of my problems stems from not taking my meds." She then says, "and well the drugs." The patient says she takes "lithium 300mg po TID." She denies hallucinations of any kind. The patient gave me permission to speak with her boyfriend at [phone]. He w as very understanding of the patient, and stated that she was a "good woman if she get things together." The patient's boyfriend, says overall the patient is usually stable, but doesn't like to take her medication. He says the patient has a strong support system between him and the patient's mother. The boyfriend says, he doesn't understand why the patient thinks she can't come back. He says he wants her home and doesn't feel like she needs to be in a hospital. He says the patient only says that because she thinks she has nowhere to go. He says, but "I just want her to understand that she has to take her medications." PAST PSYCHIATRIC HISTORY: Diagnoses: Bipolar Suicide attempts or Self-harm behavior: three Prior psychiatric hospitalizations: three Substance Abuse history: Meth, cocaine, marijuana Previous psychiatric medications tried: [facility] Outpatient treatment: Yes PAST MEDICAL HISTORY: None reported Family Psychiatric History: None reported or documented SOCIAL HISTORY Marital Status: Single Living Arrangements: with boyfriend Employment Status: Unemployed Access to guns/weapons: None reported Education: High school History of Abuse: Denies Legal History: Yes REVIEW OF SYSTEMS Constitutional: Negative for weight loss ENT: Negative for stridor Respiratory: Negative for cough or hemoptysis All other systems reviewed and are negative MENTAL STATUS EXAMINATION General Appearance: Dressed appropriately Behavior: calm and cooperative, polite, conversational Mood: "okay" Affect and affective range: congruent with stated mood, tearful at times Thought Process: goal directed, logical Thought Content: optimistic Speech: Normal volume, Regular rate and rhythm Suicidal Ideation: Denies Homicidal Ideation: Denies Hallucinations: Denies Delusions: None elicited Insight and Judgment: Limited Memory/Cognition: Limited Attention: Normal Orientation: Alert, oriented Assessment Methamphetamine Use Disorder Substance Induced Mood Disorder Noncompliance with Medical Regimen and other treatment Bipolar Disorder Treatment Plan d/c 1013 Scripts: [facility] Carb 300mg po q8h Risperidone 0.25mg po BID Risks, benefits and alternatives of medications discussed with the patient, questions answered and consent obtained from patient. PSYCHOTHERAPY: Supportive psychotherapy provided MEDICAL: Per primary team DELIRIUM PRECAUTIONS: Please re-orient patient frequently, keep lights on during the day, and minimize benzodiazepines and opiates as these medications could worsen patient's confusion. VICE PRESIDENT OF TALENT ACQUISITION: DISPOSITION: Do not recommend acute inpatient psychiatric hospitalization at this time. The patient understands and agrees that if suicidal thoughts are to arise she is to seek immediate assistance including but not limited to 911, the crisis hotline or ER. She is to abstain from all illicit drug use and comply with medical regimen The pie baker is to give the patient resources for outpatient psych, cognitive behavioral therapy, and drug rehab services The pie baker is tor further discuss the safety plan. She is to follow up with outpatient psychiatry in 7 to 14 days upon discharge Will sign off. Thank you for the consult. Please contact with any questions and/or concerns. Medications and Allergies Allergies Allergy/AdvReac Type Severity Reaction Status Date / Time No Known Allergies Allergy Verified 03/27/19 19:27 Home Medications Medication Instructions Recorded Confirmed Last Taken Type Acetaminophen/Codeine [Tylenol 1 tab PO Q6H PRN #12 tab 03/28/19 01/07/20 Unknown Rx /Codeine # 3 tab] Clindamycin [Clindamycin CAP] 300 mg PO Q8HR #60 capsule 03/28/19 01/07/20 Unknown Rx Fluconazole (Nf) [Diflucan TAB] 150 mg PO ONCE #1 tablet 03/28/19 01/07/20 Unknown Rx Ibuprofen [Motrin] 800 mg PO Q8HR PRN #24 tablet 03/28/19 01/07/20 Unknown Rx Ondansetron [Zofran Odt] 4 mg PO Q6HR PRN #15 tab.rapdis 03/28/19 01/07/20 Unknown Rx Sulfamethoxazole/Trimethoprim 1 each PO Q12H #20 tablet 03/28/19 01/07/20 Unknown Rx [Bactrim DS TAB] Chlorhexidine Gluconate [Hibiclens] 10 ml TP BID #240 liquid 03/31/19 01/07/20 Unknown Rx [facility] Carbonate 300 mg PO Q8H 01/07/20 01/07/20 Unknown History risperiDONE [RisperDAL] 0.5 mg PO DAILY 01/07/20 01/07/20 Unknown History [facility] Carbonate 300 mg PO Q8H #90 tablet 01/08/20 Unknown Rx risperiDONE [RisperDAL] 0.25 mg PO BID #60 tab 01/08/20 Unknown Rx Active Meds: Active Medications Haloperidol Lactate (Haldol) 5 mg IM Q6HR PRN PRN Reason: Agitation [facility] Carbonate (Eskalith) 300 mg PO Q8HR [facility] Last Admin: 01/08/20 08:47 Dose: Not Given Documented by: Lorazepam (Ativan) 2 mg IM Q4HR PRN PRN Reason: Agitation Ondansetron HCl (Zofran Odt) 4 mg PO Q6HR PRN PRN Reason: Nausea Risperidone (Risperdal) 0.5 mg PO DAILY SARAH Mental Status Exam - Vital signs Last Vital Signs Temp 98.4 F 01/08/20 10:13 Pulse 109 H 01/08/20 10:13 Resp 19 01/08/20 10:13 BP 96/69 01/08/20 10:13 Pulse Ox 98 01/08/20 10:13 Results Result Diagrams: 01/07/20 08:11 01/07/20 08:11 All other labs normal.
[2020-01-08] MEDS: METOPROLOL TARTRATE 25 MG TAB PO SCH (12:37)
== END 2020-01-08 13:00 ==
LOC: ED 07:04
DX: F15.10 Other stimulant abuse, uncomplicated (principal); Z20.828 Contact with and (suspected) exposure to other viral communicable diseases; F19.959 Other psychoactive substance use, unspecified with psychoactive substance-induced psychotic disorder, unspecified; I10 Essential (primary) hypertension; F31.9 Bipolar disorder, unspecified; F17.200 Nicotine dependence, unspecified, uncomplicated; F12.10 Cannabis abuse, uncomplicated; Z79.899 Other long term (current) drug therapy; Z04.6 Encounter for general psychiatric examination, requested by authority
CPT/HCPCS: 36415; 71046; 80048; 80178; 80307; 81001; 82550; 83735; 84703; 85025; 87086; 99285; U0003; 80320; G0480